=== PATIENT | male | born 1945 | race Caucasian/White ===

== ENCOUNTER 2017-07-14 11:11 | Day surgery (SDC) | payer MEDICARE ==
[~2017-07-14] VITALS: Ht 185.4 cm; Wt 86.2 kg
[~2017-07-14 11:11] MED LIST: AMLODIPINE5 MG PO; ASPIRIN81 MG PO; LIPITOR20 MG OR; LISINOPRIL20 MG OR; OMEPRAZOLE10 MG PO; TOPROL XL50 MG OR
[2017-07-14 15:06] VITALS: BP 148/85
== END 2017-07-14 15:17 | disposition home or self-care (01) ==
LOC: ENDO 11:11 → ORM 14:15 → ENDO 15:17
PROVIDERS: ATTEND Internal Medicine Gastroenterology
PROC: 0DB48ZX Excision of Esophagogastric Junction, Via Natural or Artificial Opening Endoscopic, Diagnostic (ICD-10-PCS; principal; 2017-07-14)
PROC: 0DB78ZX Excision of Stomach, Pylorus, Via Natural or Artificial Opening Endoscopic, Diagnostic (ICD-10-PCS; 2017-07-14)
PROC: 0D748ZZ Dilation of Esophagogastric Junction, Via Natural or Artificial Opening Endoscopic (ICD-10-PCS; 2017-07-14)
DX: K22.2 Esophageal obstruction (principal); R11.0 Nausea; K21.9 Gastro-esophageal reflux disease without esophagitis; K44.9 Diaphragmatic hernia without obstruction or gangrene; K31.7 Polyp of stomach and duodenum; K29.70 Gastritis, unspecified, without bleeding; K22.8 Other specified diseases of esophagus; I10 Essential (primary) hypertension; E78.00 Pure hypercholesterolemia, unspecified

== ENCOUNTER 2020-03-23 05:53 | Day surgery (SDC) | payer MEDICARE ==
[~2020-03-23] VITALS: Ht 185.4 cm; Wt 86.2 kg
[~2020-03-23 05:53] MED LIST changes: +FAMOTIDINE20 M1 PO
[2020-03-23 08:02] VITALS: BP 131/70
== END 2020-03-23 08:16 | disposition home or self-care (01) ==
LOC: ENDO 05:53 → ORM 07:45 → ENDO 07:45
PROVIDERS: ATTEND Surgery
PROC: 0DB68ZX Excision of Stomach, Via Natural or Artificial Opening Endoscopic, Diagnostic (ICD-10-PCS; principal; 2020-03-23)
PROC: 0DBL8ZX Excision of Transverse Colon, Via Natural or Artificial Opening Endoscopic, Diagnostic (ICD-10-PCS; 2020-03-23)
PROC: 0DBE8ZX Excision of Large Intestine, Via Natural or Artificial Opening Endoscopic, Diagnostic (ICD-10-PCS; 2020-03-23)
DX: K21.9 Gastro-esophageal reflux disease without esophagitis (principal); K31.7 Polyp of stomach and duodenum; K44.9 Diaphragmatic hernia without obstruction or gangrene; D12.3 Benign neoplasm of transverse colon; K57.30 Diverticulosis of large intestine without perforation or abscess without bleeding; K64.8 Other hemorrhoids; I10 Essential (primary) hypertension; Z86.19 Personal history of other infectious and parasitic diseases; Z11.59 Encounter for screening for other viral diseases

== ENCOUNTER 2022-04-10 09:17 | Observation (INO) | payer MEDICARE ==
[2022-04-10] VITALS (10 sets, daily range): BP systolic 103–117; BP diastolic 45–81
[~2022-04-10] VITALS: Ht 185.4 cm; Wt 80.0 kg
[~2022-04-10 09:17] MED LIST changes: -AMLODIPINE5 MG PO; +NORVASC5 M1 PO
[2022-04-10 09:54] LABS: IMMATURE GRANULOCYTES 0.2 % (0.0-5.0); MEAN CORPUSCULAR HGB CONC 30.2 g/dL CAL (32.0-36.0); NEUT# 5.75 thou/uL (1.82-7.42); RED BLOOD COUNT 2.03 mill/uL (4.70-6.10)
[2022-04-10 09:56] LABS: HEMATOCRIT 23.5 % (39.0-50.0); HEMOGLOBIN 7.1 g/dl (14.0-18.0); MEAN CELL VOLUME 115.8 fL CALC (80.0-100.0)
[2022-04-10 09:58] LABS: ALBUMIN 3.6 g/dL (3.2-5.0); ALKALINE PHOSPHATASE 93 u/l (38-126); BILIRUBIN, TOTAL 0.9 mg/dL (0.0-1.4); CHLORIDE 99 mmol/l (95-108); SGOT/AST 29 u/l (19-48); TOTAL PROTEIN 6.1 g/dL (6.3-8.2)
[2022-04-10 09:59] LABS: ANION GAP 14 (6-22 (CALC)); BUN 51 mg/dL (8-23); BUN/CREATININE RATIO 24 (12-20 (CALC)); CARBON DIOXIDE 23 mmol/l (22-30); CREATININE 2.1 mg/dL (0.7-1.3); GFR FOR AFR.AMER. 37 ML/MIN (>=60 (CALC)); GFR OTHER RACES 31 ML/MIN (>=60 (CALC)); POTASSIUM 5.9 mmol/l (3.5-5.1); SODIUM 130 mmol/l (137-146)
[2022-04-10 10:10] LABS: MYOGLOBIN 67 ng/mL (0 - 121)
[2022-04-10 23:14] LABS: URINE BILIRUBIN - DIPSTICK NEGATIVE (NEGATIVE); URINE BLOOD DIPSTICK TRACE-INTACT (NEGATIVE); URINE COLOR YELLOW; URINE GLUCOSE - DIPSTICK NEGATIVE (NEGATIVE); URINE KETONE NEGATIVE (NEGATIVE); URINE LEUK ESTERASE NEGATIVE (NEGATIVE); URINE NITRITE - DIPSTICK NEGATIVE (Negative); URINE PH 5.5 (4.5-8.0); URINE PROTEIN - DIPSTICK NEGATIVE (NEG-TRACE); URINE UROBILINOGEN - DIPSTICK 0.2 E.U./dL (0.2)
[2022-04-11 00:09] VITALS: BP 117/57
[2022-04-11 04:31] VITALS: BP 120/45
[2022-04-11 05:07] LABS: IMMATURE GRANULOCYTES 0.2 % (0.0-5.0); MEAN CORPUSCULAR HGB 32.9 pG CALC (26.0-32.0); MEAN CORPUSCULAR HGB CONC 31.5 g/dL CAL (32.0-36.0); NEUT# 4.51 thou/uL (1.82-7.42); RED BLOOD COUNT 2.98 mill/uL (4.70-6.10); RED CELL DISTRI WIDTH 20.2 % (11.5-15.5)
[2022-04-11 05:23] LABS: HEMATOCRIT 31.1 % (39.0-50.0); HEMOGLOBIN 9.8 g/dl (14.0-18.0); MEAN CELL VOLUME 104.4 fL CALC (80.0-100.0)
[2022-04-11 05:27] LABS: ALBUMIN 3.3 g/dL (3.2-5.0); BILIRUBIN, TOTAL 0.8 mg/dL (0.0-1.4); CREATININE 1.6 mg/dL (0.7-1.3); MAGNESIUM 2.2 mg/dL (1.6-2.3); TOTAL PROTEIN 5.6 g/dL (6.3-8.2)
[2022-04-11 05:41] LABS: POTASSIUM 4.4 mmol/l (3.5-5.1)
[2022-04-11 06:41] VITALS: BP 118/56
[2022-04-11] MEDS ORDERED: POTASSIUM CHLO10 ME4 PO (07:11)
[2022-04-11] MEDS ORDERED: FUROSEMIDE20 MG PO (07:11)
[2022-04-11] MEDS ORDERED: RANOLAZINE ER500 MG PO (07:12)
[2022-04-11 11:08] VITALS: BP 97/45
[2022-04-11] MEDS ORDERED: PROTONIX40 M2 PO (11:49)
== END 2022-04-11 13:36 | disposition home health service (06) ==
LOC: ED 09:17 → ED-I 11:18 → ED 12:08 → MS2 12:09
PROVIDERS: Emergency Medicine; ADMIT Internal Medicine; ATTEND Internal Medicine
PROC: 30233N1 Transfusion of Nonautologous Red Blood Cells into Peripheral Vein, Percutaneous Approach (ICD-10-PCS; principal; 2022-04-10)
PROC: 30233N1 Transfusion of Nonautologous Red Blood Cells into Peripheral Vein, Percutaneous Approach (ICD-10-PCS; 2022-04-10)
DX: D64.9 Anemia, unspecified (principal); N17.9 Acute kidney failure, unspecified; E86.0 Dehydration; E87.5 Hyperkalemia; I10 Essential (primary) hypertension; Z96.652 Presence of left artificial knee joint; Z86.010 Personal history of colon polyps; Z20.822 Contact with and (suspected) exposure to COVID-19
CPT/HCPCS: P9016; S0164